=== PATIENT | male | born 1960 ===

== ENCOUNTER 2019-03-16 14:57 | Inpatient (IN) | payer MEDICARE, MEDICAID ==
[~2019-03-16] VITALS: Ht 182.9 cm; Wt 113.6 kg
[2019-03-17 12:33] VITALS: BP 172/82
== END 2019-03-17 14:00 | disposition home health service (06) | DRG 291 ==
LOC: ED 15:45 → EDIP 16:03 → 4WST 18:35
PROVIDERS: ADMIT Hospitalist; ATTEND Hospitalist
PROC: 5A1D70Z Performance of Urinary Filtration, Intermittent, Less than 6 Hours Per Day (ICD-10-PCS; principal; 2019-03-16)
DX: I13.2 Hypertensive heart and chronic kidney disease with heart failure and with stage 5 chronic kidney disease, or end stage renal disease (principal); N18.6 End stage renal disease; I50.21 Acute systolic (congestive) heart failure; J44.1 Chronic obstructive pulmonary disease with (acute) exacerbation; I50.1 Left ventricular failure, unspecified; E46 Unspecified protein-calorie malnutrition; F13.20 Sedative, hypnotic or anxiolytic dependence, uncomplicated; E87.2 Acidosis; E87.5 Hyperkalemia; N25.0 Renal osteodystrophy; I49.3 Ventricular premature depolarization; I25.10 Atherosclerotic heart disease of native coronary artery without angina pectoris; G25.3 Myoclonus; F41.9 Anxiety disorder, unspecified; F32.9 Major depressive disorder, single episode, unspecified; E11.22 Type 2 diabetes mellitus with diabetic chronic kidney disease; D63.1 Anemia in chronic kidney disease; Z86.74 Personal history of sudden cardiac arrest; Z99.2 Dependence on renal dialysis; Z91.19 Patient's noncompliance with other medical treatment and regimen; Z84.1 Family history of disorders of kidney and ureter; I25.2 Old myocardial infarction; Z79.4 Long term (current) use of insulin; Z86.73 Personal history of transient ischemic attack (TIA), and cerebral infarction without residual deficits; Z90.49 Acquired absence of other specified parts of digestive tract; Z89.422 Acquired absence of other left toe(s); Z68.34 Body mass index [BMI] 34.0-34.9, adult
CPT/HCPCS: 36415; 80048; 80069; 82040; 82306; 82728; 82947; 82962; 83540; 83550; 83970; 84100; 84443; 84484; 85025; 90935; 93005; 93306; 96374; 96375; 99291; G0378; J1815; J0360; J2060

== ENCOUNTER 2019-11-04 16:48 | Inpatient (IN) | payer MEDICARE, MEDICAID ==
[~2019-11-04] VITALS: Ht 182.9 cm; Wt 114.0 kg
[~2019-11-04 16:48] MED LIST: ALPR0.5T6 PO; AMLO10TA8 PO; CARV-39 PO; CHOL200024 PO; CINA30TA2 PO; CLON-275 PO; DULO30CA2 PO; GABA100C PO; HYDR1TAB13 PO; INSU100V13 SQ; LISI-170 PO; SAXA2.5T PO
[2019-11-04] MEDS ORDERED: DEXTROSE 50%, 50ML SYRINGE ONE ×2 (16:55→19:49)
--- NOTE | 2019-11-04 17:10 | NUR ---
PT BIB AMBULANCE TRANSFER FROM [facility] FOR [place] COMPLAINTS OF MISSING DIALYSIS TODAY (NORMALLY MWF), HYPERKALEMIA (6.6) AND ELEVATED TROPONIN. PT DROWSY UPON ARRIVAL. PER EMS THEY CHECKED HIS BS JUST PRIOR TO ARRIVAL AND IT WAS 50. PT WAS GIVEN ORAL GLUCOSE BY EMS. UPON ARRIVAL RN RECHECKED TO FIND SUGAR 49. DISCUSSED WITH CLARE MORRIS AND PT GIVEN AMP OF D50W PER VERBAL ORDER. PT BREATHING SLOW AND SHALLOW WITH USE OF ACCESSORY MUSCLES. PT DROWSY BUT AWAKENS TO NAME BEING CALLED LOUDLY AND TOUCH. PT ANSWERING QUESTIONS APPROPRIATELY WHEN AWAKE AT THIS TIME. PT MOVED TO TR04. REPORT TO BRENDAN NOBLE WHO ASSUMED CARE OF PT.
--- NOTE | 2019-11-04 17:22 | NUR ---
BREAK RN: PT MOVED TO T3 REPORT GIVEN FROM BRENDAN GARCÍA. PT PLACED ON BIPAP AT 40% PER DR MORRIS. FSBS 135. 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 SINUS MARY NOTED. PULSE OX ON 100%. LAB IN ROOM. PT IS DROWSY. CALL LIGHT IN PLACE. CALL ILGHT IN PLACE. WILL CONTINUE TO MONITOR.
[2019-11-04] MEDS ORDERED: SODIUM CHLORIDE FLUSH 10ML SYR IVF ONE (17:30)
[2019-11-04 17:41] LABS: BASOPHILS # (AUTO) 0.03 x10^3/uL (0-0.1); BASOPHILS % (AUTO) 1 % (0-1); EOSINOPHILS # (AUTO) 0.17 x10^3/uL (0-0.4); EOSINOPHILS % (AUTO) 3 % (1-7); LYMPHOCYTES # (AUTO) 1.08 x10^3/uL (1-3.4); LYMPHOCYTES % (AUTO) 19 % (22-44); MD NO; MEAN CORPUSCULAR HGB CONC 33.4 g/dL (33.2-36.2); MEAN CORPUSCULAR VOLUME 95.8 fL (81-97); MEAN PLATELET VOLUME 7.8 fL (7.4-10.4); MONOCYTES % (AUTO) 11 % (2-9); NEUTROPHILS # (AUTO) 3.74 x10^3/uL (1.8-6.8); NEUTROPHILS % (AUTO) 67 % (42-75); PLATELET COUNT 198 x10^3/uL (130-400); RED BLOOD COUNT 2.46 x10^6/uL (4.38-5.82)
--- NOTE | 2019-11-04 17:45 | NUR ---
REPORT GIVEN TO BRENDAN OBREGON
[2019-11-04 17:46] LABS: ALBUMIN 2.9 g/dL (3.4-5.0); ANION GAP 13 mmol/L (5-15); CALCIUM 7.6 mg/dL (8.5-10.1); CHLORIDE 99 mmol/L (98-107)
--- NOTE | 2019-11-04 17:47 | NUR ---
RECEIVED REPORT FROM REAL CARDONA. PT RESTING ON BIPAP 05/28. WAITING FOR LABS AND ADMIT ORDERS. PT RESPONDS TO VERBAL STIMULI.
[2019-11-04 17:53] LABS: ALANINE AMINOTRANSFERASE 106 U/L (12-78); ALKALINE PHOSPHATASE 150 U/L (45-117); BILIRUBIN,TOTAL 0.9 mg/dL (0.2-1.0); TOTAL PROTEIN 7.2 g/dL (6.4-8.2)
[2019-11-04] MEDS ORDERED: DILT120C64 PO (18:07)
[2019-11-04] MEDS ORDERED: SEVE800T8 PO ×2 (18:07)
[2019-11-04] MEDS ORDERED: DOXY100C2 PO (18:07)
[2019-11-04] MEDS ORDERED: TRAM50TA2 PO (18:07)
[2019-11-04] MEDS ORDERED: TRAZ50TA66 PO (18:07)
[2019-11-04] MEDS ORDERED: FOLI0.8T22 PO (18:07)
--- NOTE | 2019-11-04 18:21 | NUR ---
CRITICAL VALUES OF TROP AT 0.24, PHOSPHATE AT 10.7, BUN AT [address] MORRIS.
--- NOTE | 2019-11-04 18:22 | NUR ---
RT AT BEDSDIE TO CHANGE PT TO OPTIFLOW RATHER THAN BIPAP. WAITING FOR BED ON MED TELE TO START DIALYSIS.
--- NOTE | 2019-11-04 18:33 | NUR ---
BS WAS 68. DR. MORRIS AWARE. APPLE JUICE GIVEN PER DR. MORRIS.
--- NOTE | 2019-11-04 19:17 | NUR ---
ABG BEING DONE AT BEDSIDE. WAITING FOR RESULTS PRIOR TO GOING TO MED TELE PER DR. DEAL.
[2019-11-04] MEDS ORDERED: hydrALAzine 20 MG/ML, 1ML IVPush PRN (19:30)
[2019-11-04] MEDS ORDERED: POLYETHYLENE GLYCOL 17 GM PACKET PO PRN (19:30)
[2019-11-04] MEDS ORDERED: ONDANSETRON 4 MG TABLET PO PRN ×2 (19:30→20:30)
[2019-11-04] MEDS ORDERED: BISACODYL 10 MG SUPP PR PRN (19:30)
[2019-11-04] MEDS ORDERED: ACETAMINOPHEN 325 MG TABLET PO PRN (19:30)
--- NOTE | 2019-11-04 19:53 | NUR ---
AMP OF D50 GIVEN PER DR. MORRIS AFTER BS WENT DOWN TO 68 AGAIN. [facility] IN DIALYSIS IS READY FOR PT.
[2019-11-04] MEDS ORDERED: DEXTROSE 50%, 50ML SYRINGE IVPush ONE (20:00)
[2019-11-04] MEDS: INSULIN LISPRO 100 UNITS/ML, PEN SQ-INSULIN SCH (21:00)
[2019-11-04] MEDS ORDERED: SEVELAMER CARBONATE 800MG TAB PO SCH (21:00)
[2019-11-04 21:01] VITALS: BP 117/71
[2019-11-04] MEDS ORDERED: ALBUTEROL SULFATE 2.5 MG/3 ML NPPB PRN (23:30)
[2019-11-05 00:35] VITALS: BP 158/77
[2019-11-05] MEDS: GABAPENTIN 100 MG CAPSULE PO SCH ×4 (00:39→21:10)
[2019-11-05] MEDS: HEPARIN 5,000 UNITS/ML, 1ML SQ SCH ×3 (00:40→16:46)
[2019-11-05 01:12] VITALS: BP 158/77
[2019-11-05] MEDS ORDERED: ALPR0.5T7 PO (04:46)
[2019-11-05 04:57] LABS: BASOPHILS # (AUTO) 0.02 x10^3/uL (0-0.1); BASOPHILS % (AUTO) 0 % (0-1); EOSINOPHILS # (AUTO) 0.28 x10^3/uL (0-0.4); EOSINOPHILS % (AUTO) 6 % (1-7); LYMPHOCYTES # (AUTO) 1.17 x10^3/uL (1-3.4); LYMPHOCYTES % (AUTO) 23 % (22-44); MD NO; MEAN CORPUSCULAR HEMOGLOBIN 31.7 pg (27.5-34.5); MEAN CORPUSCULAR HGB CONC 33.1 g/dL (33.2-36.2); MEAN CORPUSCULAR VOLUME 95.5 fL (81-97); MEAN PLATELET VOLUME 7.8 fL (7.4-10.4); MONOCYTES # (AUTO) 0.55 x10^3/uL (0.2-0.8); MONOCYTES % (AUTO) 11 % (2-9); NEUTROPHILS # (AUTO) 3.14 x10^3/uL (1.8-6.8); NEUTROPHILS % (AUTO) 61 % (42-75); PLATELET COUNT 200 x10^3/uL (130-400); RED BLOOD COUNT 2.46 x10^6/uL (4.38-5.82); RED CELL DISTRIBUTION WIDTH 17.2 % (9.4-14.8)
[2019-11-05 05:12] LABS: ALANINE AMINOTRANSFERASE 132 U/L (12-78); ALBUMIN 2.9 g/dL (3.4-5.0); ANION GAP 8 mmol/L (5-15); CHLORIDE 99 mmol/L (98-107); CREATININE 6.95 mg/dL (0.7-1.3)
[2019-11-05 05:16] LABS: ALKALINE PHOSPHATASE 153 U/L (45-117); BILIRUBIN,TOTAL 0.9 mg/dL (0.2-1.0); TOTAL PROTEIN 7.3 g/dL (6.4-8.2); TROPONIN I 0.176 ng/mL (0.000-0.045)
[2019-11-05] MEDS: INSULIN LISPRO 100 UNITS/ML, PEN SQ-INSULIN SCH ×4 (08:05→20:02)
[2019-11-05 08:20] VITALS: BP 159/82
[2019-11-05] MEDS: SEVELAMER CARBONATE 800MG TAB PO SCH ×3 (08:45→16:47)
[2019-11-05] MEDS ORDERED: ARANESP 100 MCG/ML **ESRD SQ SCH ×2 (09:00→13:53)
[2019-11-05] MEDS ORDERED: CINACALCET 30 MG TABLET PO SCH (09:00)
[2019-11-05 10:59] LABS: TROPONIN I 0.189 ng/mL (0.000-0.045)
[2019-11-05] MEDS: CHOLECALCIFEROL 1,000 UNIT TABLET PO SCH (14:25)
[2019-11-05] MEDS: AMLODIPINE 10 MG TAB PO SCH (14:25)
[2019-11-05] MEDS: SENNA/DOCUSATE TABLET PO SCH (14:26)
[2019-11-05] MEDS: LISINOPRIL 20 MG TABLET PO SCH (14:26)
[2019-11-05] MEDS: DULOXETINE 30 MG CAPSULE.DR PO SCH (14:26)
[2019-11-05] MEDS: ASPIRIN 81 MG TABLET CHEW PO SCH (14:31)
[2019-11-05] MEDS: OXYcodone/APAP 5/325MG TABLET PO PRN ×2 (15:28→23:46)
[2019-11-05 15:54] VITALS: BP 172/89
[2019-11-05 19:58] VITALS: BP 160/84
[2019-11-05] MEDS: ATORVASTATIN 40 MG TABLET PO SCH (21:10)
[2019-11-06 00:24] VITALS: BP 150/83
[2019-11-06] MEDS: HEPARIN 5,000 UNITS/ML, 1ML SQ SCH ×4 (01:00→23:56)
[2019-11-06 06:22] LABS: BASOPHILS # (AUTO) 0.04 x10^3/uL (0-0.1); BASOPHILS % (AUTO) 1 % (0-1); EOSINOPHILS # (AUTO) 0.43 x10^3/uL (0-0.4); EOSINOPHILS % (AUTO) 8 % (1-7); LYMPHOCYTES # (AUTO) 1.23 x10^3/uL (1-3.4); LYMPHOCYTES % (AUTO) 24 % (22-44); MD NO; MEAN CORPUSCULAR HEMOGLOBIN 31.7 pg (27.5-34.5); MEAN CORPUSCULAR HGB CONC 32.8 g/dL (33.2-36.2); MEAN CORPUSCULAR VOLUME 96.6 fL (81-97); MEAN PLATELET VOLUME 7.5 fL (7.4-10.4); MONOCYTES % (AUTO) 13 % (2-9); NEUTROPHILS % (AUTO) 54 % (42-75); PLATELET COUNT 229 x10^3/uL (130-400); RED BLOOD COUNT 2.75 x10^6/uL (4.38-5.82); RED CELL DISTRIBUTION WIDTH 16.9 % (9.4-14.8)
[2019-11-06 06:30] LABS: ANION GAP 8 mmol/L (5-15); CALCIUM 7.8 mg/dL (8.5-10.1); CHLORIDE 99 mmol/L (98-107)
[2019-11-06 06:35] LABS: ALANINE AMINOTRANSFERASE 143 U/L (12-78); ALKALINE PHOSPHATASE 160 U/L (45-117); BILIRUBIN,TOTAL 0.8 mg/dL (0.2-1.0); CREATININE 5.87 mg/dL (0.7-1.3); TOTAL PROTEIN 7.6 g/dL (6.4-8.2)
[2019-11-06] MEDS: INSULIN LISPRO 100 UNITS/ML, PEN SQ-INSULIN SCH ×4 (07:00→21:00)
[2019-11-06 07:16] VITALS: BP 166/86
[2019-11-06] MEDS: OXYcodone/APAP 5/325MG TABLET PO PRN ×3 (07:24→23:56)
[2019-11-06] MEDS: SEVELAMER CARBONATE 800MG TAB PO SCH ×3 (09:11→16:55)
[2019-11-06] MEDS: CHOLECALCIFEROL 1,000 UNIT TABLET PO SCH (09:11)
[2019-11-06] MEDS: ASPIRIN 81 MG TABLET CHEW PO SCH (09:12)
[2019-11-06] MEDS: AMLODIPINE 10 MG TAB PO SCH (09:12)
[2019-11-06] MEDS: DULOXETINE 30 MG CAPSULE.DR PO SCH (09:12)
[2019-11-06] MEDS: LISINOPRIL 20 MG TABLET PO SCH (09:12)
[2019-11-06] MEDS: SENNA/DOCUSATE TABLET PO SCH (09:13)
[2019-11-06] MEDS: GABAPENTIN 100 MG CAPSULE PO SCH ×3 (09:13→21:21)
[2019-11-06 12:52] VITALS: BP 173/69
[2019-11-06] MEDS: ALBUTEROL SULFATE 2.5 MG/3 ML NPPB SCH (20:34)
[2019-11-06 20:56] VITALS: BP 169/84
[2019-11-06] MEDS: ATORVASTATIN 40 MG TABLET PO SCH (21:21)
[2019-11-07 01:24] VITALS: BP 188/90
[2019-11-07 05:51] LABS: ALANINE AMINOTRANSFERASE 119 U/L (12-78); ALBUMIN 3.1 g/dL (3.4-5.0); ANION GAP 9 mmol/L (5-15); CALCIUM 7.9 mg/dL (8.5-10.1); CHLORIDE 97 mmol/L (98-107)
[2019-11-07 05:56] LABS: ALKALINE PHOSPHATASE 161 U/L (45-117); BILIRUBIN,TOTAL 0.7 mg/dL (0.2-1.0); CREATININE 7.39 mg/dL (0.7-1.3); TOTAL PROTEIN 7.5 g/dL (6.4-8.2); TROPONIN I 0.164 ng/mL (0.000-0.045)
[2019-11-07] MEDS: INSULIN LISPRO 100 UNITS/ML, PEN SQ-INSULIN SCH ×4 (07:00→20:07)
[2019-11-07] MEDS: SEVELAMER CARBONATE 800MG TAB PO SCH ×3 (08:00→20:06)
[2019-11-07] MEDS: HEPARIN 5,000 UNITS/ML, 1ML SQ SCH ×2 (08:37→20:06)
[2019-11-07] MEDS: LISINOPRIL 20 MG TABLET PO SCH (09:00)
[2019-11-07] MEDS: ASPIRIN 81 MG TABLET CHEW PO SCH (09:00)
[2019-11-07] MEDS: SENNA/DOCUSATE TABLET PO SCH (09:00)
[2019-11-07] MEDS: AMLODIPINE 10 MG TAB PO SCH (09:00)
[2019-11-07] MEDS ORDERED: REGADENOSON 0.4 MG/5 ML SYRINGE ONE (09:13)
[2019-11-07 09:34] VITALS: BP 178/91
[2019-11-07 13:16] VITALS: BP 161/81
[2019-11-07] MEDS: GABAPENTIN 100 MG CAPSULE PO SCH ×3 (13:49→20:07)
[2019-11-07] MEDS: CHOLECALCIFEROL 1,000 UNIT TABLET PO SCH (13:49)
[2019-11-07] MEDS: DULOXETINE 30 MG CAPSULE.DR PO SCH (13:49)
[2019-11-07] MEDS: OXYcodone/APAP 5/325MG TABLET PO PRN ×2 (13:50→20:25)
[2019-11-07 19:47] VITALS: BP 161/89
[2019-11-07] MEDS: ATORVASTATIN 40 MG TABLET PO SCH (20:07)
[2019-11-07] MEDS: ALBUTEROL SULFATE 2.5 MG/3 ML NPPB SCH ×2 (20:20→20:21)
[2019-11-08 02:12] VITALS: BP 166/82
[2019-11-08] MEDS: OXYcodone/APAP 5/325MG TABLET PO PRN ×3 (02:58→21:00)
[2019-11-08] MEDS: HEPARIN 5,000 UNITS/ML, 1ML SQ SCH ×3 (02:58→21:00)
[2019-11-08 06:21] VITALS: BP 154/78
[2019-11-08 06:36] LABS: BASOPHILS # (AUTO) 0.03 x10^3/uL (0-0.1); BASOPHILS % (AUTO) 1 % (0-1); EOSINOPHILS # (AUTO) 0.42 x10^3/uL (0-0.4); EOSINOPHILS % (AUTO) 7 % (1-7); LYMPHOCYTES # (AUTO) 1.56 x10^3/uL (1-3.4); LYMPHOCYTES % (AUTO) 25 % (22-44); MD NO; MEAN CORPUSCULAR HGB CONC 33.2 g/dL (33.2-36.2); MEAN CORPUSCULAR VOLUME 96.2 fL (81-97); MEAN PLATELET VOLUME 7.2 fL (7.4-10.4); MONOCYTES # (AUTO) 0.68 x10^3/uL (0.2-0.8); MONOCYTES % (AUTO) 11 % (2-9); NEUTROPHILS # (AUTO) 3.68 x10^3/uL (1.8-6.8); NEUTROPHILS % (AUTO) 58 % (42-75); PLATELET COUNT 267 x10^3/uL (130-400); RED BLOOD COUNT 2.71 x10^6/uL (4.38-5.82); RED CELL DISTRIBUTION WIDTH 17.3 % (9.4-14.8)
[2019-11-08 06:43] LABS: % IRON SATURATION 20 % (20-55); ANION GAP 10 mmol/L (5-15); CALCIUM 8.2 mg/dL (8.5-10.1); CHLORIDE 96 mmol/L (98-107); CREATININE 6.87 mg/dL (0.7-1.3); IRON LEVEL 69 mcg/dL (65-175); TOTAL IRON BINDING CAPACITY 342 mcg/dL (250-450)
[2019-11-08] MEDS: INSULIN LISPRO 100 UNITS/ML, PEN SQ-INSULIN SCH ×4 (07:00→20:59)
[2019-11-08] MEDS: DULOXETINE 30 MG CAPSULE.DR PO SCH (08:21)
[2019-11-08] MEDS: AMLODIPINE 10 MG TAB PO SCH (08:21)
[2019-11-08] MEDS: SEVELAMER CARBONATE 800MG TAB PO SCH ×3 (08:21→17:49)
[2019-11-08] MEDS: ASPIRIN 81 MG TABLET CHEW PO SCH (08:21)
[2019-11-08] MEDS: CHOLECALCIFEROL 1,000 UNIT TABLET PO SCH (08:21)
[2019-11-08] MEDS: LISINOPRIL 20 MG TABLET PO SCH (08:22)
[2019-11-08] MEDS: GABAPENTIN 100 MG CAPSULE PO SCH ×3 (08:22→21:00)
[2019-11-08] MEDS: SENNA/DOCUSATE TABLET PO SCH (08:24)
[2019-11-08] MEDS ORDERED: CARVEDILOL 3.125 MG TABLET PO SCH (09:00)
[2019-11-08] MEDS: ALBUTEROL SULFATE 2.5 MG/3 ML NPPB SCH ×2 (09:15→19:57)
[2019-11-08 12:03] VITALS: BP 143/72
[2019-11-08 14:08] LABS: HCT (SEDRATE) 25.9 % (39.2-51.8)
[2019-11-08] MEDS: CARVEDILOL 6.25 MG TABLET PO SCH (17:48)
[2019-11-08] MEDS: MORPHINE SULFATE 4 MG/ML, 1ML IVPush PRN (17:50)
[2019-11-08 20:28] VITALS: BP 169/83
[2019-11-08] MEDS: ATORVASTATIN 40 MG TABLET PO SCH (21:00)
[2019-11-09 00:22] VITALS: BP 152/73
[2019-11-09] MEDS: HEPARIN 5,000 UNITS/ML, 1ML SQ SCH ×3 (03:04→20:40)
[2019-11-09] MEDS: MORPHINE SULFATE 4 MG/ML, 1ML IVPush PRN (03:05)
[2019-11-09] MEDS: CARVEDILOL 6.25 MG TABLET PO SCH ×2 (05:04→18:01)
[2019-11-09 06:38] VITALS: BP 160/81
[2019-11-09 07:31] LABS: BASOPHILS # (AUTO) 0.02 x10^3/uL (0-0.1); BASOPHILS % (AUTO) 0 % (0-1); EOSINOPHILS # (AUTO) 0.49 x10^3/uL (0-0.4); EOSINOPHILS % (AUTO) 8 % (1-7); LYMPHOCYTES # (AUTO) 1.36 x10^3/uL (1-3.4); LYMPHOCYTES % (AUTO) 23 % (22-44); MD NO; MONOCYTES # (AUTO) 0.63 x10^3/uL (0.2-0.8); MONOCYTES % (AUTO) 11 % (2-9); NEUTROPHILS # (AUTO) 3.35 x10^3/uL (1.8-6.8); NEUTROPHILS % (AUTO) 57 % (42-75); PLATELET COUNT 267 x10^3/uL (130-400); RED BLOOD COUNT 2.77 x10^6/uL (4.38-5.82); RED CELL DISTRIBUTION WIDTH 17.3 % (9.4-14.8)
[2019-11-09 07:39] LABS: ALBUMIN 3.1 g/dL (3.4-5.0); ANION GAP 10 mmol/L (5-15); CALCIUM 8.2 mg/dL (8.5-10.1); CHLORIDE 93 mmol/L (98-107)
[2019-11-09] MEDS: SEVELAMER CARBONATE 800MG TAB PO SCH ×3 (08:54→16:11)
[2019-11-09] MEDS: INSULIN LISPRO 100 UNITS/ML, PEN SQ-INSULIN SCH ×4 (08:57→20:51)
[2019-11-09] MEDS: SENNA/DOCUSATE TABLET PO SCH (08:57)
[2019-11-09] MEDS: OXYcodone/APAP 5/325MG TABLET PO PRN ×3 (09:05→20:40)
[2019-11-09] MEDS: ALBUTEROL SULFATE 2.5 MG/3 ML NPPB SCH ×2 (09:15→20:27)
[2019-11-09 12:17] VITALS: BP 115/53
[2019-11-09] MEDS: ASPIRIN 81 MG TABLET CHEW PO SCH (13:01)
[2019-11-09] MEDS: GABAPENTIN 100 MG CAPSULE PO SCH ×3 (13:01→20:40)
[2019-11-09] MEDS: CHOLECALCIFEROL 1,000 UNIT TABLET PO SCH (13:01)
[2019-11-09] MEDS: DULOXETINE 30 MG CAPSULE.DR PO SCH (13:02)
[2019-11-09] MEDS ORDERED: VANCOMYCIN 1,700 MG in SODIUM CHLORIDE 0.9% 250 ML IV SCH (15:30)
[2019-11-09 19:22] VITALS: BP 154/72
[2019-11-09] MEDS: ATORVASTATIN 40 MG TABLET PO SCH (20:40)
[2019-11-09] MEDS: AMLODIPINE 10 MG TAB PO SCH (20:51)
[2019-11-10 01:32] VITALS: BP 138/72
[2019-11-10] MEDS: OXYcodone/APAP 5/325MG TABLET PO PRN ×4 (03:10→23:52)
[2019-11-10] MEDS: HEPARIN 5,000 UNITS/ML, 1ML SQ SCH ×3 (04:37→20:32)
[2019-11-10] MEDS: CARVEDILOL 6.25 MG TABLET PO SCH ×2 (04:37→16:54)
[2019-11-10 05:40] LABS: BASOPHILS # (AUTO) 0.04 x10^3/uL (0-0.1); BASOPHILS % (AUTO) 1 % (0-1); EOSINOPHILS % (AUTO) 8 % (1-7); LYMPHOCYTES # (AUTO) 1.23 x10^3/uL (1-3.4); LYMPHOCYTES % (AUTO) 20 % (22-44); MD NO; MEAN CORPUSCULAR HGB CONC 33.2 g/dL (33.2-36.2); MEAN CORPUSCULAR VOLUME 96.4 fL (81-97); MEAN PLATELET VOLUME 7.3 fL (7.4-10.4); MONOCYTES # (AUTO) 0.63 x10^3/uL (0.2-0.8); MONOCYTES % (AUTO) 10 % (2-9); NEUTROPHILS # (AUTO) 3.65 x10^3/uL (1.8-6.8); NEUTROPHILS % (AUTO) 60 % (42-75); PLATELET COUNT 268 x10^3/uL (130-400); RED BLOOD COUNT 2.68 x10^6/uL (4.38-5.82)
[2019-11-10 05:47] LABS: ANION GAP 7 mmol/L (5-15); CALCIUM 8.2 mg/dL (8.5-10.1); CHLORIDE 95 mmol/L (98-107)
[2019-11-10 05:50] LABS: ALANINE AMINOTRANSFERASE 73 U/L (12-78); ALKALINE PHOSPHATASE 162 U/L (45-117); BILIRUBIN,TOTAL 0.6 mg/dL (0.2-1.0); CREATININE 6.91 mg/dL (0.7-1.3); TOTAL PROTEIN 7.8 g/dL (6.4-8.2)
[2019-11-10 06:51] VITALS: BP 128/67
[2019-11-10] MEDS: INSULIN LISPRO 100 UNITS/ML, PEN SQ-INSULIN SCH ×4 (07:00→19:40)
[2019-11-10] MEDS: DULOXETINE 30 MG CAPSULE.DR PO SCH (07:45)
[2019-11-10] MEDS: GABAPENTIN 100 MG CAPSULE PO SCH ×3 (07:45→20:32)
[2019-11-10] MEDS: AMLODIPINE 10 MG TAB PO SCH (07:45)
[2019-11-10] MEDS: ASPIRIN 81 MG TABLET CHEW PO SCH (07:45)
[2019-11-10] MEDS: SENNA/DOCUSATE TABLET PO SCH (07:46)
[2019-11-10] MEDS: CHOLECALCIFEROL 1,000 UNIT TABLET PO SCH (07:46)
[2019-11-10] MEDS: SEVELAMER CARBONATE 800MG TAB PO SCH ×3 (07:51→16:53)
[2019-11-10] MEDS: ALBUTEROL SULFATE 2.5 MG/3 ML NPPB SCH ×2 (09:00→19:27)
[2019-11-10 14:27] VITALS: BP 120/55
[2019-11-10] MEDS: FUROSEMIDE 80 MG TABLET PO SCH (16:53)
[2019-11-10] MEDS: ATORVASTATIN 40 MG TABLET PO SCH (20:32)
[2019-11-10 20:47] VITALS: BP 133/68
[2019-11-11 00:17] VITALS: BP 158/79
[2019-11-11] MEDS: CARVEDILOL 6.25 MG TABLET PO SCH (05:19)
[2019-11-11] MEDS: HEPARIN 5,000 UNITS/ML, 1ML SQ SCH ×2 (05:20→13:14)
[2019-11-11 06:05] LABS: ALBUMIN 3.2 g/dL (3.4-5.0); ANION GAP 8 mmol/L (5-15); CALCIUM 8.6 mg/dL (8.5-10.1); CHLORIDE 96 mmol/L (98-107); CREATININE 6.98 mg/dL (0.7-1.3)
[2019-11-11] MEDS: OXYcodone/APAP 5/325MG TABLET PO PRN ×2 (06:26→15:36)
[2019-11-11 07:55] VITALS: BP 136/67
[2019-11-11] MEDS: CHOLECALCIFEROL 1,000 UNIT TABLET PO SCH (07:56)
[2019-11-11] MEDS: ASPIRIN 81 MG TABLET CHEW PO SCH (07:57)
[2019-11-11] MEDS: INSULIN LISPRO 100 UNITS/ML, PEN SQ-INSULIN SCH ×2 (07:57→11:00)
[2019-11-11] MEDS: GABAPENTIN 100 MG CAPSULE PO SCH (07:58)
[2019-11-11] MEDS: SENNA/DOCUSATE TABLET PO SCH (07:58)
[2019-11-11] MEDS: DULOXETINE 30 MG CAPSULE.DR PO SCH (07:58)
[2019-11-11] MEDS: SEVELAMER CARBONATE 800MG TAB PO SCH ×3 (07:58→12:46)
[2019-11-11] MEDS ORDERED: SEVE800T8 PO (08:25)
[2019-11-11] MEDS ORDERED: FURO80TA3 PO (08:25)
[2019-11-11] MEDS ORDERED: ATOR40TA78 PO (08:25)
[2019-11-11] MEDS ORDERED: ASPI-515 PO (08:25)
[2019-11-11] MEDS ORDERED: CARV6.2512 PO (08:25)
[2019-11-11] MEDS ORDERED: VANC1.7511 IV (08:29)
[2019-11-11] MEDS: ALBUTEROL SULFATE 2.5 MG/3 ML NPPB SCH (09:00)
[2019-11-11] MEDS ORDERED: VANCOMYCIN 2,000 MG in SODIUM CHLORIDE 0.9% 500 ML IV ONE (11:30)
[2019-11-11] MEDS ORDERED: VANCOMYCIN 2,000 MG in SODIUM CHLORIDE 0.9% 250 ML IV SCH (11:30)
[2019-11-11 12:05] VITALS: BP 124/72
[2019-11-11] MEDS ORDERED: SODIUM ZIRCONIUM CYCLOSILICATE 10 GM PO ONE (12:30)
[2019-11-11] MEDS: AMLODIPINE 10 MG TAB PO SCH (12:47)
[2019-11-11] MEDS: FUROSEMIDE 80 MG TABLET PO SCH (13:13)
[2019-11-11] MEDS ORDERED: PATI8.4P PO (14:40)
== END 2019-11-11 15:49 | disposition home or self-care (01) | DRG 640 ==
LOC: ED 18:16 → OBSVTOIN 18:17 → EDIP 18:17 → INTOOBSV 18:17 → ED 18:47 → 4WST 20:03
PROVIDERS: ADMIT Internal Medicine; ATTEND Internal Medicine
PROC: 5A09357 Assistance with Respiratory Ventilation, Less than 24 Consecutive Hours, Continuous Positive Airway Pressure (ICD-10-PCS; principal; 2019-11-04)
PROC: 5A1D70Z Performance of Urinary Filtration, Intermittent, Less than 6 Hours Per Day (ICD-10-PCS; 2019-11-04)
PROC: 5A1D70Z Performance of Urinary Filtration, Intermittent, Less than 6 Hours Per Day (ICD-10-PCS; 2019-11-05)
PROC: 5A1D70Z Performance of Urinary Filtration, Intermittent, Less than 6 Hours Per Day (ICD-10-PCS; 2019-11-07)
PROC: 5A1D70Z Performance of Urinary Filtration, Intermittent, Less than 6 Hours Per Day (ICD-10-PCS; 2019-11-09)
PROC: 5A1D70Z Performance of Urinary Filtration, Intermittent, Less than 6 Hours Per Day (ICD-10-PCS; 2019-11-10)
PROC: 5A1D70Z Performance of Urinary Filtration, Intermittent, Less than 6 Hours Per Day (ICD-10-PCS; 2019-11-11)
DX: E87.5 Hyperkalemia (principal); J96.01 Acute respiratory failure with hypoxia; I50.43 Acute on chronic combined systolic (congestive) and diastolic (congestive) heart failure; G93.41 Metabolic encephalopathy; N18.6 End stage renal disease; I13.2 Hypertensive heart and chronic kidney disease with heart failure and with stage 5 chronic kidney disease, or end stage renal disease; I24.8 Other forms of acute ischemic heart disease; M86.9 Osteomyelitis, unspecified; E87.1 Hypo-osmolality and hyponatremia; E11.22 Type 2 diabetes mellitus with diabetic chronic kidney disease; Z99.2 Dependence on renal dialysis; Z79.4 Long term (current) use of insulin; N25.0 Renal osteodystrophy; E11.69 Type 2 diabetes mellitus with other specified complication; E11.649 Type 2 diabetes mellitus with hypoglycemia without coma; D63.1 Anemia in chronic kidney disease; J44.9 Chronic obstructive pulmonary disease, unspecified; R16.1 Splenomegaly, not elsewhere classified; R00.1 Bradycardia, unspecified; K76.1 Chronic passive congestion of liver; Z86.73 Personal history of transient ischemic attack (TIA), and cerebral infarction without residual deficits
CPT/HCPCS: 36415; 36600; 71045; 76700; 78452; 80053; 80069; 80202; 82140; 82306; 82728; 82803; 82962; 83540; 83550; 83735; 83880; 83970; 84100; 84443; 84484; 84550; 85025; 85651; 86140; 86705; 86706; 87340; 90935; 93005; 93017; 93308; 93990; 94640; 94660; 96372; 99291; G0378; J0882; J1644; J2785; J3370; J7613; A9502; J0360; J1815; J2270; J7040; J7050